=== PATIENT | male | born 1975 | race Caucasian/White ===

== ENCOUNTER 2019-02-19 07:50 | Emergency (ER) | payer BC ==
[2019-02-19 08:12] VITALS: BP 131/88
--- NOTE | 2019-02-19 08:53 | UC ---
Ear Complaint HPI - HPI Summary HPI Summary: 43-year-old male presents with 5 day history of tinnitus to the right ear. Describes as a high-pitched ringing. Associated with a couple of brief episodes of dizziness and disequilibrium and nausea. Denies exposure to loud noises, fever, chills, hearing loss, ear drainage, ear pain, URI symptoms, headache, visual disturbances, facial droop, slurred or difficulty speaking, or numbness, tingling, weakness of the arms or legs. - History of Current Complaint Chief Complaint: UCEar Stated Complaint: RIGHT EAR COMPLAINT Time Seen by Provider: 02/19/19 08:27 Hx Obtained From: Patient Pain Intensity: 0 - Allergies/Home Medications Allergies/Adverse Reactions: Allergies Allergy/AdvReac Type Severity Reaction Status Date / Time No Known Allergies Allergy Verified 02/19/19 08:12 PMH/Surg Hx/FS Hx/Imm Hx Previously Healthy: Yes - Denies significant PMH - Surgical History Surgical History: None - Family History Known Family History: Positive: Non-Contributory - Social History Occupation: Employed Full-time Lives: Alone Alcohol Use: Occasionally Substance Use Type: Marijuana Substance Use Comment - Amount & Last Used: occ usage Smoking Status (MU): Never Smoked Tobacco Review of Systems All Other Systems Reviewed And Are Negative: Yes Constitutional: Negative: Fever, Chills Eyes: Negative: Blurred Vision, Diplopia, Drainage, Eye Redness, Photophobia ENT: Negative: Sore Throat, Ear Ache, Nasal Discharge, Sinus Congestion, Sinus Pain/Tenderness Respiratory: Negative: Cough Cardiovascular: Positive: Negative Gastrointestinal: Positive: Negative Genitourinary: Positive: Negative Motor: Positive: Negative Neurovascular: Positive: Negative Musculoskeletal: Positive: Negative Neurological: Negative: Headache, Weakness, Paresthesia, Numbness Is Patient Immunocompromised?: No Physical Exam - Summary Physical Exam Summary: GENERAL APPEARANCE: Well developed, well nourished, alert and cooperative, and appears to be in no acute distress. EYES: Conjunctiva clear. No drainage. PERRL, EOM intact. Vision is grossly intact. EARS: External auditory canals and tympanic membranes clear, hearing grossly intact. NOSE: No nasal discharge. THROAT: Pharynx normal. No tonsilar inflammation, swelling, exudate, or lesions. Uvula midline. Oral cavity normal. Teeth and gingiva in good general condition. NECK: Neck supple, non-tender without lymphadenopathy. CARDIAC: Normal S1 and S2. No S3, S4 or murmurs. Rhythm is regular. There is no peripheral edema, cyanosis or pallor. Extremities are warm and well perfused. Capillary refill is less than 2 seconds. Peripheral pulses intact. LUNGS: Clear to auscultation without rales, rhonchi, wheezing or diminished breath sounds. ABDOMEN: Positive bowel sounds. Soft, nondistended, nontender. No guarding or rebound. No masses or hepatosplenomegally. MUSKULOSKELETAL: ROM intact to all extremities. No joint erythema or tenderness. Normal muscular development. Normal gait. NEUROLOGICAL: CN II-XII intact. Strength and sensation symmetric and intact throughout. Reflexes 2+ throughout. Cerebellar testing normal. SKIN: Skin normal color, texture and turgor with no lesions or eruptions. Triage Information Reviewed: Yes Vital Signs: Initial Vital Signs Temp 97.2 F 02/19/19 08:05 Pulse 61 02/19/19 08:05 Resp 18 02/19/19 08:05 BP 131/88 02/19/19 08:05 Pulse Ox 99 02/19/19 08:05 Vital Signs Reviewed: Yes Ear Complaint Course/Dx - Course Course Of Treatment: 43-year-old male presents with 5 day history of tinnitus to the right ear. Describes as a high-pitched ringing. Associated with a couple of brief episodes of dizziness and disequilibrium and nausea. Denies exposure to loud noises, fever, chills, hearing loss, ear drainage, ear pain, URI symptoms, headache, visual disturbances, facial droop, slurred or difficulty speaking, or numbness, tingling, weakness of the arms or legs. Afebrile. Vital signs stable. The patient's exam was overall unremarkable. Discussed with the patient that I could not identify a specific cause of his symptoms. Will have him follow-up with otolaryngology within the next 5 days. Patient has requested to be seen by Dr. Martino therefore appropriate referral was made. Will prescribe meclizine 25 mg every 6 hours as needed for dizziness or nausea. Anticipatory guidance and warning symptoms were reviewed with the patient. Verbalizes understanding and agrees with plan of care - Differential Dx/Diagnosis Differential Diagnosis/HQI/PQRI: Otitis Media, Other - BPPV, vestibular neurititis Provider Diagnosis: Tinnitus of right ear Discharge - Sign-Out/Discharge Documenting (check all that apply): Patient Departure All imaging exams completed and their final reports reviewed: No Studies - Discharge Plan Condition: Stable Disposition: HOME Prescriptions: Meclizine HCl [Dramamine Less Drowsy] 25 mg PO Q6HR PRN #20 tablet PRN Reason: Dizziness Patient Education Materials: Tinnitus (ED) Referrals: No Primary Care Phys,NOPCP [Primary Care Provider] - Richard Martino MD [Medical Doctor] - Additional Instructions: Your exam in the clinic today was unremarkable and I was not able to identify the exact cause of your symptoms. Take meclizine 25 mg 1 tablet every 6 hours as needed for any dizziness or nausea. Follow-up with the sprayer operator (Ear, Nose, snd Throat specialist) within 5 days for further evaluation and treatment. Call Thursday for an appointment. Seek immediate medical attention in the emergency room if you develop fever greater than 100.5 F, you have persistent dizziness, persistent vomiting, severe headache, visual disturbances, facial droop, slurred or difficulty speaking, or any worsening of symptoms. - Billing Disposition and Condition Condition: STABLE Disposition: Home - Attestation Statements Provider Attestation: I was available for consult. This patient was seen by the JL. The patient was not presented to , seen by or examined by hi -Brent Hutton MD
== END 2019-02-19 09:12 | disposition home or self-care (01) ==
LOC: UCCORT 07:50
DX: H93.A1 Pulsatile tinnitus, right ear (principal)
CPT/HCPCS: 99202; G0463